=== PATIENT | female | born 2000 | race Caucasian/White ===

== ENCOUNTER 2021-06-24 21:44 | Emergency (ER) | payer OTHER ==
[~2021-06-24] VITALS: Ht 162.6 cm; Wt 81.6 kg
[2021-06-24 21:55] VITALS: BP 135/90
--- NOTE | 2021-06-24 21:57 | NUR ---
TO LOBBY A/W BED AMBULATORY
--- NOTE | 2021-06-24 22:52 | NUR ---
PT TAKEN TO ER BED 01
[2021-06-24] MEDS ORDERED: IBUPROFEN 400 MG TAB PO ONE (23:15)
[2021-06-24] MEDS ORDERED: IBUPROFEN 400 MG TAB ONE (23:16)
--- NOTE | 2021-06-24 23:20 | NUR ---
PT C/O NAUSEA, DIARRHEA, AND PELVIC PAIN X 2 DAYS, PELVIC PAIN RADIATES TOWARDS LOWER BACK X 1 MONTH. MEDICAL HX: BELLS PALSY MEDICATIONS: DENIES NKA
[2021-06-24 23:53] LABS: BASOPHILS # (AUTO) 0.1 K/uL (0.00-0.22); BASOPHILS % (AUTO) 0.5 % (0.0-2.0); EOSINOPHILS # (AUTO) 0.2 K/uL (0-0.4); EOSINOPHILS % (AUTO) 1.5 % (0.0-4.0); HEMATOCRIT 41.6 % (36-48); HEMOGLOBIN 13.9 g/dL (12.0-16.0); LYMPHOCYTES # (AUTO) 3.8 K/uL (2.5-16.5); LYMPHOCYTES % (AUTO) 31.6 % (20.5-51.1); MEAN CORPUSCULAR HEMOGLOBIN 29 pg (27-31); MEAN CORPUSCULAR HGB CONC 34 g/dL (33-37); MEAN CORPUSCULAR VOLUME 86.3 fL (80-94); MONOCYTES # (AUTO) 0.9 K/uL (0.8-1.0); MONOCYTES % (AUTO) 7.8 % (1.7-9.3); NEUTROPHILS % (AUTO) 58.6 % (42.2-75.2); PLATELET COUNT (AUTO) 231 K/uL (140-450); RED BLOOD CELL COUNT(AUTO) 4.82 MIL/uL (4.20-5.40); RED CELL DISTRIBUTION WIDTH 14.1 % (11.6-13.7)
[2021-06-25 00:04] LABS: ANION GAP 13.5 (8-16); CARBON DIOXIDE 27.2 mmol/L (21-32); CREATININE 0.8 mg/dL (0.6-1.3); POTASSIUM 3.7 mmol/L (3.5-5.1)
[2021-06-25 00:25] LABS: ALBUMIN 3.5 g/dL (3.4-5.0); BILIRUBIN,DIRECT 0.1 mg/dL (0.0-0.3); TOTAL BILIRUBIN 0.1 mg/dL (0.0-1.0)
--- NOTE | 2021-06-25 00:30 | NUR ---
Patient appears to be resting comfortably in bed. Vital Signs within normal limits. Respirations even and unlabored. BED RAILS UP AND BED AT LOWEST POSITION.
--- NOTE | 2021-06-25 00:35 | NUR ---
PELVIC TRAY SET UP FOR EXAM AT BEDSIDE.
[2021-06-25] MEDS ORDERED: DOXY-690 PO (01:28)
[2021-06-25] MEDS ORDERED: cefTRIAXone 500 MG in LIDOCAINE MPF 1% 1 ML IM ONE (01:30)
[2021-06-25] MEDS ORDERED: cefTRIAXone 500 MG VIAL ONE (01:41)
[2021-06-25] MEDS ORDERED: LIDOCAINE MPF 1% 5 ML ONE (01:41)
[2021-06-25] MEDS ORDERED: METR-520 PO (02:11)
--- NOTE | 2021-06-25 02:25 | NUR ---
Patient discharged with v/s stable. Written and verbal after care instructions given and explained. Patient alert, oriented and verbalized understanding of instructions. Ambulatory with steady gait. All questions addressed prior to discharge. ID band removed. Patient advised to follow up with PMD. Rx of VIBRAMYCIN AND FLAGYL given. Patient educated on indication of medication including possible reaction and side effects. Opportunity to ask questions provided and answered.
[2021-06-25 02:33] VITALS: BP 118/75
== END 2021-06-25 02:25 | disposition home or self-care (01) ==
LOC: MED 21:44
DX: N76.0 Acute vaginitis (principal); B96.89 Other specified bacterial agents as the cause of diseases classified elsewhere; A64 Unspecified sexually transmitted disease; Z79.899 Other long term (current) drug therapy
CPT/HCPCS: 36415; 80048; 80076; 81002; 81025; 83690; 85025; 87210; 87491; 96372; 99283; J0696; J2001